=== PATIENT | female | born 1965 | race Two or more races ===

== ENCOUNTER 2025-01-20 12:05 | Day surgery (SDC) | payer MEDICAID, SELFPAY ==
[2025-01-19 12:05] VITALS: BMI 42.0
[2025-01-20] VITALS (12 sets, daily range): BP systolic 111–145; BP diastolic 70–89; PULSE 64–80; RESP 12–20; TEMP 36.3–37.1; O2SAT 93–98; BMI 44.9
[2025-01-20] MEDS: DEXTROSE 5%-WATER 500 ML 100 ML IV (13:32)
[2025-01-20] MEDS: MIDAZOLAM INJ 1 MG/ML VIAL 2 ML 2 MG IVP (13:40)
[2025-01-20] MEDS: fentaNYL CIT INJ 50 mCg/ML AMP 2ML IVP (13:42)
--- NOTE | 2025-01-20 15:11 | SUR.PHASEII ---
1440 Pt more awake and alert. Via [place] speaker-pt denies pain or N/V. Abd remains soft. Pt byron po fluids. 1455 Pt assessment unchanged. No complaints. Pt amb with steady gait. Able to dress self. Pt requesting family to interpret. DC instructions given, questions answered. Pt meets dc criteria-to home.
== END 2025-01-20 14:55 | disposition home or self-care (01) ==
PROVIDERS: PCP Internal Medicine; Referring Provider Surgery; Visit Provider Surgery
PROC: 0DBE8ZX Excision of Large Intestine, Via Natural or Artificial Opening Endoscopic, Diagnostic (ICD-10-PCS; CPT 45380; principal; 2025-01-20 13:00)
DX: Z12.11 Encounter for screening for malignant neoplasm of colon (principal); D12.2 Benign neoplasm of ascending colon; E66.01 Morbid (severe) obesity due to excess calories; I10 Essential (primary) hypertension; K63.5 Polyp of colon; Z68.42 Body mass index [BMI] 45.0-49.9, adult
CPT/HCPCS: 45385; J2250; J3010; J7070